=== PATIENT | female | born 1980 | race Caucasian/White ===

== ENCOUNTER → 2017-12-31 | Outpatient (CLI) | payer SELFPAY ==
[2014-05-29 08:27] VITALS: BMI 32.5
[~2017-12-31] MED LIST: GADOBENATE 529MG/1ML 15ML VIAL IVP ONE; IBU800 PO; IBUP800T37 PO; LOR5 PO; LOR7.5/325 PO; NS 0.9% 20 ML SDV 60 ML ONE; OXYC-373 PO; PRENAT PO
--- NOTE | 2017-12-31 14:23 | RADIOLOGY IMAGING REPORT ---
[place]AC[place] [facility] [place]IENT NAME: Zee Esquivel : 1980 MR: [id number] V: [id number] EXAM DATE: ORDERING PHYSICIAN: MITCH ANTONY TECHNOLOGIST: Location: [facility] - [place] Patient: Zee Esquivel : 1980 Visit/Account:[id number] Date of Sevice: 12/31/2017 EXAMINATION: MRI pelvis without contrast MRI pelvis with IV contrast 12/31/2017 8:48 AM HISTORY: Periurethral cyst. Rule out urethral diverticulum. TECHNIQUE: Multiplanar multisequence imaging of the pelvis was done before and after intravenous cont rast. Contrast: 15 mL of IV MultiHance COMPARISON STUDIES: CT abdomen and pelvis 12/16/2008 FINDINGS: Uterus: Anteverted. Junctional zone is borderline thickened without clear features of adenomyosis. Ovaries / adnexa: Normal ovaries with small follicles. No clear PCOS pattern. Bladder/urethra: Partially filled bladder contours are unremarkable. There is a cystic-appearing str ucture adjacent to the distal ureter just above the urethral meatus which measures 8 to 9 mm in size. This is rounded and has increased T1 and decreased T2 signal and does not clearly show postcontrast enhancement. The precise course of the urethra adjacent to this is not optimally defined but this d oes not grossly appear to be a urethral diverticulum. Bowel / mesenteries: negative. Bones: Modic marrow changes along the lumbosacral junction. Vascular structures: negative. Other: Ovoid 2.3 cm stone in the gallbladder. LN assessment: negative. IMPRESSION: 9 mm periurethral cystic structure. The course of the ureter is not optimally defined ad jacent to this but a periurethral cyst such as a Robinhood's cyst would be favored over a urethral divert iculum. Report Dictated By: Jose Maria Mcmahan MD at 12/31/2017 2:06 PM Report E-Signed By: Jose Maria Mcmahan MD at 12/31/2017 2:19 PM WSN:[id number]
== END ==
LOC: MRI 00:51
PROVIDERS: ATTEND Obstetrics & Gynecology
DX: N36.8 Other specified disorders of urethra (principal); K80.20 Calculus of gallbladder without cholecystitis without obstruction
CPT/HCPCS: 72197; A9577; J7050